=== PATIENT | female | born 1955 | race Caucasian/White ===

== ENCOUNTER 2021-06-01 08:49 | Day surgery (SDC) | payer OTHER ==
[2021-05-30 12:05] VITALS: BMI 27.4
[2021-06-01] MEDS ORDERED: MIDAZOLAM HCL 2 MG/2 ML SINGLE DOSE VIAL ONE (10:07)
[2021-06-01] MEDS ORDERED: PROPOFOL 20 ML ONE (10:07)
[2021-06-01] MEDS ORDERED: CLINDAMYCIN PHOSPHATE 600 MG/4 ML VIAL ONE (10:08)
[2021-06-01] MEDS ORDERED: BUPIVACAINE HCL/PF 0.25% (2.5MG/ML) 10 ML VIAL ONE (10:11)
[2021-06-01] MEDS ORDERED: ONDANSETRON 4 MG/2 ML VIAL IVPUSH PRN (10:13)
[2021-06-01] MEDS ORDERED: PROMETHAZINE HCL 25 MG/1 ML VIAL IVPUSH PRN (10:13)
[2021-06-01] MEDS ORDERED: oxyCODONE HCL 5 MG TABLET PO PRN (10:13)
[2021-06-01] MEDS ORDERED: ACETAMINOPHEN 325 MG TABLET (FP) PO PRN (10:13)
[2021-06-01] MEDS ORDERED: LACTATED RINGERS SOLUTION 1,000 ML IV SCH (10:15)
[2021-06-01] MEDS ORDERED: KETOROLAC TROMETHAMINE 30 MG/1 ML VIAL ONE (10:27)
[2021-06-01 11:22] VITALS: TEMP 97.5
[2021-06-01 12:09] VITALS: BP 120/60; PULSE 72
== END 2021-06-01 12:00 | disposition home or self-care (01) ==
LOC: FASU 08:49
PROVIDERS: ATTEND Orthopaedic Surgery Hand Surgery
PROC: 0LQ83ZZ Repair Left Hand Tendon, Percutaneous Approach (ICD-10-PCS; 2021-06-01)
PROC: 0LQ80ZZ Repair Left Hand Tendon, Open Approach (ICD-10-PCS; principal; 2021-06-01 10:34)
PROC: 0L8 Tendons, Division (ICD-10-PCS; 2021-06-01 10:34)
DX: M20.012 Mallet finger of left finger(s) (principal)
CPT/HCPCS: 73130-TC-LT-FY